=== PATIENT | male | born 1955 | race Caucasian/White ===

== ENCOUNTER 2017-08-25 09:58 | Day surgery (SDC) | payer BC ==
--- NOTE | 2017-08-25 06:38 | History and Physical Report ---
DATE: 08/24/2017. CHIEF COMPLAINT AND HISTORY OF CHIEF COMPLAINT: This patient presents with a history of intractable lumbar radiculitis. Due to the failure of all therapies , on 07/18/2017 a spinal cord stimulator trial was conducted with up to greater than 75 percent pain control. Due to the failure of all therapies, he is here for implantation of a permanent spinal cord stimulator. PAST MEDICAL HISTORY: Hypertension. PAST SURGICAL HISTORY: Lumbar spinal surgery. EMPLOYMENT STATUS: Not identified. MEDICATIONS ON ADMISSION: To be provided. ALLERGIES: Penicillin, sulfa, Benadryl. SOCIAL HISTORY: Caffeine and smoking. FAMILY HISTORY: Noncontributory. REVIEW OF SYSTEMS: The patient is appropriate and in no acute distress. The remainder of the systems review shows glasses, blood pressure problems. PHYSICAL EXAMINATION: Musculoskeletal: Examination shows tenderness in the lumbar spine. Range of motion does seem to produce pain to the low back with extension. There is an incisional site at the mid lumbar spine consistent with a history of a laminectomy. There is tenderness adjacent to the site. Lower extremity functionality shows mild motor and sensory field abnormalities in the left lower extremity crossing an L4 and L5 pattern. The primary pain is at L5 at the butt cheek and back of the leg. The right lower extremity appears to be intact. Ambulation: No assistive device utilized. Neurologic: Cranial nerves are intact. IMPRESSION: 1. POSTLUMBAR LAMINECTOMY SYNDROME, ICD-10 CODE M96.1. 2. LUMBAR RADICULITIS, ICD-10 CODE M54.16 AND M54.17. PLAN: The patient is here for implantation of a permanent spinal cord stimulator after a successful trial. All of the potential risks, side effects, and complications have been carefully reviewed and discussed including nerve root injury, spinal injury, dural puncture, and spinal headache. The patient understands the risks and has consented. We will consider this procedure outpatient, but an overnight stay will be evaluated. JOB NUMBER: [id number] cc: Hector Tijerina
[~2017-08-25 09:58] MED LIST: ACETAMINOPHEN 1,000 MG/100 ML BTL IV ONE; CLINDAMYCIN 600MG/50ML PREMIX 600 MG/50 ML BAG IVPB ONE; FAMOTIDINE 20MG TABLET PO ONE; MECLIZINE 25 MG TABLET PO ONE; METOCLOPRAMIDE 10 MG TABLET PO ONE
[2017-08-25] MEDS ORDERED: HYDROMORPHONE HCL 2 MG/ML VIAL IV ONE (09:59)
[2017-08-25] MEDS ORDERED: LIDOCAINE 2% MDV (20MG/ML) 20ML VIAL IV ONE (09:59)
[2017-08-25] MEDS ORDERED: MIDAZOLAM HCL 2MG/2ML VIAL IV ONE (09:59)
[2017-08-25] MEDS ORDERED: CLINDAMYCIN (PEDIATRIC DOSING) 150 MG/ML VIAL IVPB ONE (09:59)
[2017-08-25] MEDS ORDERED: PROPOFOL 10 MG/ML VIAL IV ONE (09:59)
[2017-08-25] MEDS ORDERED: FENTANYL PF 100MCG/2ML VIAL IV ONE (09:59)
[2017-08-25] MEDS ORDERED: METOCLOPRAMIDE HCL 10 MG/2 ML VIAL IVP PRN (13:16)
[2017-08-25] MEDS ORDERED: HYDROMORPHONE HCL 1 MG/ML SYRINGE IM PRN (13:16)
[2017-08-25] MEDS ORDERED: METOCLOPRAMIDE 10 MG TABLET PO PRN (13:16)
[2017-08-25] MEDS ORDERED: HYDROMORPHONE HCL 2 MG/ML VIAL IM PRN (13:16)
[2017-08-25] MEDS ORDERED: OXYCODONE/APAP 10MG-325MG TABLET PO PRN ×2 (13:16)
[2017-08-25] MEDS ORDERED: AL HYDROX/MAG HYDROX 30ML UD PO PRN (13:16)
[2017-08-25] MEDS ORDERED: HYDROCODONE/APAP 7.5/325MG TABLET PO PRN ×2 (13:16)
[2017-08-25] MEDS ORDERED: TEMAZEPAM 15 MG CAPSULE PO PRN ×2 (13:16)
[2017-08-25] MEDS ORDERED: SENNOSIDES/DOCUSATE SODIUM UD CAPSULE PO PRN ×2 (13:16)
[2017-08-25] MEDS ORDERED: ACETAMINOPHEN 325 MG TAB PO PRN ×2 (13:16)
[2017-08-25] MEDS ORDERED: TIZANIDINE HCL 4 MG TABLET PO PRN (13:17)
[2017-08-25] MEDS ORDERED: PREGABALIN 50 MG CAPSULE PO PRN (13:17)
[2017-08-25] MEDS ORDERED: CARVEDILOL 12.5 MG TABLET PO SCH (13:30)
[2017-08-25] MEDS ORDERED: CLINDAMYCIN 600MG/50ML PREMIX 600 MG/50 ML BAG IVPB SCH (19:10)
[2017-08-25] MEDS ORDERED: 0.9 % SODIUM CHLORIDE 10ML SYR IVP SCH (22:00)
--- NOTE | 2017-08-26 07:11 | Operative Note - Ferro ---
DATE OF SURGERY: 08/25/17 PREOPERATIVE DIAGNOSES: 1. POST LUMBAR LAMINECTOMY SYNDROME = ICD-10 CODE = M96.1. 2. LUMBAR RADICULITIS, ICD-10 CODE = M54.16 AND M54.17. OPERATION: 1. FLUOROSCOPICALLY-GUIDED EPIDURAL ACCESS LEFT, T11-12. PLACEMENT OF SPINAL CORD STIMULATOR LEAD 1, A [employer] INFINION 16 WITH 16 ELECTRODES POSITIONED LEFT T7. 2. FLUOROSCOPICALLY-GUIDED EPIDURAL ACCESS LEFT, T12-L1. PLACEMENT OF SPINAL CORD STIMULATOR LEAD 2, A [employer] INFINION 16 WITH 16 ELECTRODES POSITIONED RIGHT T7. 3. COMPLEX PROGRAMMING OF LEAD 1 OVER 20 MINUTES FOLLOWED BY COMPLEX PROGRAMMING OF LEAD 2 OVER 20 MINUTES. 4. INCISION, SUBCUTANEOUS DISSECTION, AND ANCHORING LEAD 1 AND LEAD 2 TO SUPRASPINOUS FASCIA USING A [employer] LOCKING ANCHOR. 5. INCISION, SUBCUTANEOUS DISSECTION, AND CREATION OF A SUBCUTANEOUS POUCH AT LEFT FLANK ABOVE BELT LINE; SITE PICKED BY PATIENT FOR GENERATOR IDENTIFIED A [employer] PROGRAMMABLE RECHARGEABLE. 6. TUNNELING BETWEEN POUCHES, PLACEMENT OF EXTERNAL PORTION OF LEAD 1 AND LEAD 2 INTO GENERATOR POUCH, EACH LEAD INTERFACED TO GENERATOR BY WAY OF BIFURCATED CONNECTIONS. 7. ANTIBIOTIC IRRIGATION. BOVIE FOR HEMOSTASIS. PLACEMENT OF LEADS INTO POUCH. PLACEMENT OF GENERATOR TO POUCH. GENERATOR SECURED TO POSTERIOR FASCIA. CLOSURE OF INCISIONS, VICRYL FOR FASCIA AND A RUNNING SUBCUTICULAR VICRYL FOR SKIN. 8. COMPLEX PROGRAMMING RECOVERY ROOM, INTERNAL GENERATOR, HOME USE, TWO STIMULATORS, 20 MINUTES. SURGEON: JALEN PHILLIP D.O. ANESTHESIA: LOCAL SEDATION. ANESTHESIA PROVIDER: ROSIE WILSON CRNA. INDICATION: This patient presents today with pain, which is back, hip, and leg at postlaminectomy. Due to the failure of all therapies, a spinal cord stimulator trial was conducted with 75 to 85% pain control. Due to the failure of other therapies, he is here for implantation of a permanent system. PROCEDURE: Intravenous line, vital sign monitoring, IV sedation, prepped and draped in sterile technique. The epidural interspace from the left at T11-12 and 12-1 were both infiltrated with local and two separate epidural access needles with [id number]. At 11-12, spinal cord stimulator lead 1, a [employer] Infinion 16 with 16 electrodes, was advanced positioned left of midline T7. With the epidural access left of midline at 12-1, spinal cord stimulator lead 2, also a [employer] Infinion 16 with 16 electrodes, was positioned right of midline at T7. Complex programming of lead 1 over 20 minutes followed by complex programming of lead 2 over 20 minutes resulting in patterns of stimulation across the back and into the legs; patient indicating we had all of the appropriate areas. He was given the option to implant, continue to reprogram or remove; he opted to implant. Question was repeated with the same response. The skin above and below both needles was infiltrated, incision made, and subcutaneous dissection was conducted to the supraspinous fascia. The needles were removed and each lead was anchored to the supraspinous fascia with a [employer] [place] and nonabsorbable suture. At the left flank above the belt line; a site picked by the patient for the generator, skin infiltrated, incision made, and subcutaneous dissection was conducted to form a pouch of suitable size and depth for the generator identified as a [employer] Programmable Rechargeable. A tunneling tool was used to carry the leads into the generator pouch and then each lead was interfaced with the generator. Antibiotic irrigation. Bovie for hemostasis. The generator was placed into the pouch then secured to the fascia with nonabsorbable suture. The leads were placed into their own pouch and then both incisions were closed Vicryl for fascia and a running subcuticular Vicryl for skin. A Dermabond closure was used to approximate the edges both wounds. He was transported to the Recovery Room stable showing no side-effects from the procedure or the sedation. When fully awake and alert, complex programming of the internal generator in the Recovery Room over 20 minutes performed re-establishing stimulation and pain control to all of the appropriate areas. He was instructed on the use of the system, provided with information and error messaging, and then prepared for discharge. DISCHARGE INSTRUCTIONS: 1. Sites remain clean and dry. No showering or bathing in any way that would disrupt dressings. If it happens, contact the clinic. The Dermabond will him to shower in 24 hours. 2. Standard medications resumed including Levaquin, the antibiotic, 500 mg once a day for 14 days. 3. All other medications resumed. Activities will stay low for the next 5-7 days until he comes in to evaluate the sites in 7-10 days. The office will call him in 3-5 days. All other instructions were provided, numbers to contact with problems given. At that point, he will be prepared for discharge. cc: Dr. Eastman JOB NUMBER: [id number] MTDD
--- NOTE | 2017-08-26 07:33 | RADIOLOGY REPORT ---
DATE: 08/25/2017. EXAM: LUMBAR SPINE. HISTORY: Stimulator placement. TECHNIQUE: A single AP view of the lumbar spine was performed. FINDINGS: The stimulator lead tips are at the T6-7 level. IMPRESSION: STIMULATOR LEAD TIPS ARE AT T6-7. JOB NUMBER: [id number] MTDD
[2017-08-26] MEDS ORDERED: LISINOPRIL 10 MG TABLET PO SCH (10:00)
== END 2017-08-25 15:15 | disposition home or self-care (01) ==
LOC: SUR 09:58 → MEDSURG 13:27 → SUR 15:15
PROVIDERS: ATTEND Pain Medicine Interventional Pain Medicine
DX: M96.1 Postlaminectomy syndrome, not elsewhere classified (principal); M54.17 Radiculopathy, lumbosacral region; M54.16 Radiculopathy, lumbar region; Z79.01 Long term (current) use of anticoagulants
CPT/HCPCS: 63685; 63650 ×2; 01936; 72020; J3010; J1170; 95972; C1820; C1883

== ENCOUNTER 2018-08-17 06:30 | Day surgery (SDC) | payer BC ==
--- NOTE | 2018-08-17 06:22 | History and Physical - Ferro ---
CHIEF COMPLAINT/HISTORY OF CHIEF COMPLAINT: This patient presents with a history of post lumbar laminectomy radiculopathy. A spinal cord stimulator implanted on 08/25/17. Although the system appeared to manage his pain quite well, his pain has been changing over time with areas moving higher up into his spine and lower into his lower extremities. The ability of the current system in controlling these new areas of pain has been limited. A new generator now exists by [employer] called [employer] which presents greater programming capabilities, more specific program options for electrical stimulation as well as the potential to overlay different programs simultaneously. The end result greater potential at programming and stimulation patterns. For all of the above he is here for replacement of his current generator with the new technology. PAST MEDICAL HISTORY: Hypertension. PAST SURGICAL HISTORY: Lumbar spinal surgery and spinal cord stimulator implant. MEDICATIONS ON ADMISSION: List to be provided. ALLERGIES: PENICILLIN, SULFA, AND BENADRYL. FAMILY/PSYCHOSOCIAL HISTORY: Social history - Caffeine and smoking. Family history - Noncontributory. SYSTEMS REVIEW: The patient is appropriate in no acute distress. The remainder of the systems review is positive for glasses and blood pressure problems. PHYSICAL EXAMINATION: Height is 5'8", weight is 140. Vital signs - Not available. HEENT: Within normal limits. LUNGS: Clear. HEART: Regular rate and rhythm. ABDOMEN: Nontender. MUSCULOSKELETAL: Examination of the musculoskeletal system shows the incision for the generator at the left flank above the belt line. The incisional site is intact. His pain pattern is left upper mid low back with a left lower extremity extension. Motor and sensory mcpherson are intact. NEUROLOGIC: Cranial nerves are intact. IMPRESSION: POST LUMBAR LAMINECTOMY SYNDROME, ICD-10 CODE M96.1 WITH RADICULOPATHY, ICD-10 CODE M54-16 AND M54.17. PLAN: The patient is here for removal and replacement of his generator with new technology. The procedure will be considered outpatient although an overnight stay will be evaluated. JOB NUMBER: [id number] [facility]
[2018-08-17] MEDS ORDERED: CLINDAMYCIN (PEDIATRIC DOSING) 150 MG/ML VIAL IVPB ONE (06:31)
[2018-08-17] MEDS ORDERED: BUPIVACAINE 0.5% W/EPI MPF 30 ML VIAL IVP ONE (06:31)
[2018-08-17] MEDS ORDERED: FENTANYL PF 100MCG/2ML VIAL IV ONE (06:31)
[2018-08-17] MEDS ORDERED: PROPOFOL 10 MG/ML VIAL IV ONE (06:31)
[2018-08-17] MEDS ORDERED: KETOROLAC 30 MG/ML VIAL IVP ONE (06:31)
[2018-08-17] MEDS ORDERED: KETAMINE HCL 100MG/1ML VIAL INJ ONE (06:31)
[2018-08-17] MEDS ORDERED: LIDOCAINE 2% MDV (20MG/ML) 20ML VIAL IV ONE ×2 (06:31)
[2018-08-17] MEDS ORDERED: MIDAZOLAM HCL 2MG/2ML VIAL IV ONE (06:31)
[2018-08-17] MEDS ORDERED: LIDOCAINE 1% W/EPI 1:200,000 MPF 30ML SQ ONE (06:31)
--- NOTE | 2018-08-18 08:28 | Operative Note - Ferro ---
DATE OF SURGERY: 08/17/18 PREOPERATIVE DIAGNOSES: 1. POST LUMBAR LAMINECTOMY SYNDROME ICD-10 CODE = M96.1 WITH RADICULOPATHY ICD- 10 CODE = M54.16 AND M54.17. 2. SPINAL CORD STIMULATOR INTERNAL GENERATOR. OPERATION: FLUOROSCOPICALLY-GUIDED INCISION, SUBCUTANEOUS DISSECTION, AND REMOVAL AND REPLACEMENT OF INTERNAL PULSE GENERATOR AT LEFT FLANK WITH WAVEWRITER [employer]. SURGEON: JALEN PHILLIP D.O. ANESTHESIA: LOCAL SEDATION. ANESTHESIA PROVIDER: BLOSSOM FARAH CRNA INDICATION: This patient presents with a history of a post laminectomy radiculopathy. He has been managed quite successfully with spinal cord stimulation and internal generator. Over the last number of months, his pain patterns extended moving higher and lower into his extremity and into his back. The system, which had been placed, was unable to keep up or adjust for this change in his pain pattern. It was felt that changing his generator to the new generation [employer] WaveWriter would provide him with greater programming options. PROCEDURE: Intravenous line, vital sign monitoring, IV sedation, prepped and draped sterile technique. With the patient prone, sterile prep, sterile technique and imaging, the incision for the generator infiltrated, incision made , and subcutaneous dissection was conducted. The generator was then identified, the pouch opened, and exteriorized. The generator was from the internal leads. The new WaveWriter generator placed onto the field, interfaced with the existing leads. Antibiotic irrigation and Bovie for hemostasis. The generator was placed into the pouch and incision was closed using STRATAFIX suture 2-0 fascia, 3-0 skin. Dermabond closure. He was transported to the Recovery Room stable. No side-effect from the procedure. When fully awake and alert, complex programming of the generator in the Recovery Room performed over 20 minutes re-establishing stimulation to all of the appropriate areas. DISCHARGE INSTRUCTIONS: 1. Sites remain clean and dry although he can shower, he should not sit in water with the Dermabond. 2. Office will contact the patient in 3-5 days to set up an appointment in 7-10 days to evaluate the site. Until then, activities should stay controlled. All other instructions provided, precautions given, numbers to contact, problems have been provided. Antibiotic called. We will evaluate. cc: Dr. Eastman JOB NUMBER: [id number] [facility]
== END 2018-08-17 08:56 | disposition home or self-care (01) ==
LOC: SUR 06:30
PROVIDERS: ATTEND Pain Medicine Interventional Pain Medicine
DX: M96.1 Postlaminectomy syndrome, not elsewhere classified (principal); M54.16 Radiculopathy, lumbar region; M54.17 Radiculopathy, lumbosacral region; Z79.01 Long term (current) use of anticoagulants; I10 Essential (primary) hypertension; I25.10 Atherosclerotic heart disease of native coronary artery without angina pectoris; I25.2 Old myocardial infarction; Z95.5 Presence of coronary angioplasty implant and graft
CPT/HCPCS: 95972; C1820; J1885; J3490